=== PATIENT | male | born 1985 | race African-American/Black ===

== ENCOUNTER 2018-04-23 15:42 | Observation (INO) | payer SELFPAY ==
--- NOTE | 2018-04-23 16:01 | PDOC ---
History of Present Illness - General Chief Complaint: Syncope/Near Syncope Stated Complaint: Syncope/Near Syncope History Source: Patient, Family (mother) - History of Present Illness Initial Comments: The patient is a 32 with no reported history other than one syncopal fall who presents s/p syncope x2 today. He reports that he was standing in his home talking with his mother when he suddenly syncopized. He immediately regained conciousness, attempted to stand with the assistance of his mother, and syncopized again. He endorses LOC and hitting the front of head although his second fall was partially broken by his mother. He denies urinary or fecal incontinence during/after the episode. The patient's mother denies witnessing any seizure-like activity. The patient denies any symptoms prior to his syncopal episode. He denies recent sports activity, working outside, AVENDAÑO, blurry vision, chest pain, N/V/D. He denies history of dysrhythmia, family history of syncope or heart disease. PCP - Dr. Cormier 04/23/18 17:16 Past History - Past Medical History Allergies/Adverse Reactions: Allergies Allergy/AdvReac Type Severity Reaction Status Date / Time No Known Allergies Allergy Verified 04/23/18 15:48 Home Medications: Ambulatory Orders Acetaminophen [Tylenol] 650 mg PO PRN PRN 04/24/18 Albuterol Sulfate Inhaler - [Ventolin HFA Inhaler -] 1 puff PO PRN PRN 04/24/18 Anemia: No COPD: No Diabetes: No HTN: No - Surgical History Abdominal Surgery: No - Suicide/Smoking/Psychosocial Hx Smoking History: Current every day smoker Number of Cigarettes Smoked Daily: 4 Information on smoking cessation initiated: No Review of Systems - Review of Systems Able to Perform ROS?: Yes Comments:: GENERAL/CONSTITUTIONAL: No fever or chills. No weakness. HEAD, EYES, EARS, NOSE AND THROAT: +forehead pain s/p fall. No change in vision. No ear pain or discharge. No sore throat. CARDIOVASCULAR: No chest pain or shortness of breath RESPIRATORY: No cough, wheezing, or hemoptysis. GASTROINTESTINAL: No nausea, vomiting, diarrhea or constipation. GENITOURINARY: No dysuria, frequency, or change in urination. MUSCULOSKELETAL: No joint or muscle swelling or pain. No neck or back pain. SKIN: No rash NEUROLOGIC: +LOC. No headache or change in strength/sensation. ENDOCRINE: No increased thirst. No abnormal weight change HEMATOLOGIC/LYMPHATIC: No anemia, easy bleeding, or history of blood clots. ALLERGIC/IMMUNOLOGIC: No hives or skin allergy. 04/23/18 17:24 Is the patient limited Urdu proficient: No *Physical Exam - Vital Signs Last Vital Signs Temp Pulse Resp BP Pulse Ox 98.0 F 77 16 85/44 96 04/23/18 15:47 04/23/18 15:47 04/23/18 15:47 04/23/18 15:47 04/23/18 15:47 - Physical Exam Comments: GENERAL: Awake, tired, and fully oriented, in no acute distress HEAD: Small abrasion over left eyebrow, normocephalic, atraumatic EYES: PERRLA, EOMI, sclera anicteric, conjunctiva clear ENT: Auricles normal inspection, hearing grossly normal, nares patent, oropharynx clear without exudates. Moist mucosa NECK: Normal ROM, supple, no lymphadenopathy LUNGS: No distress, speaks full sentences, clear to auscultation bilaterally HEART: Hypotension to SBP 80s. Regular rate and rhythm, normal S1 and S2, no murmurs appreciated ABDOMEN: Soft, nontender, normoactive bowel sounds. No guarding, no rebound EXTREMITIES : Mild left calf pain. Normal range of motion, no edema. No clubbing or cyanosis. NEUROLOGICAL: Cranial nerves II through XII grossly intact. Slow but appropriate speech, no focal sensorimotor deficits SKIN: Warm, Dry, normal turgor, no rashes or lesions noted 04/23/18 16:37 ED Treatment Course - LABORATORY CBC & Chemistry Diagram: 04/24/18 05:30 04/24/18 05:30 Medical Decision Making - Medical Decision Making The patient is a 32M with a history of 1 syncopal episode who presents s/p syncope x2 today while standing at home. Ddx: arrythmia, orthostatic, metabolic disturbance, PE, hypoglycemia, anemia; less likely vasovagal or stroke, not likely medication related ED Course CMP, CBC, UDS, UA, D-dimer, CXR, ECG, CT Head 2L NS bolus 04/23/18 16:41 Patient's BP responsive to IVF, SBP from 80s to 100s CXR without evidence of PNA, PNX, or cardiomegaly CMP significant for hypokalmemia (3.4) and BRANT with Cr of 1.4 -Potassium repleted with KCl 40mg PO once 04/23/18 17:26 Orthostatic pressure Layin/80s Sittin/80s Standin/[address] Head without evidence of acute bleed Patient reports some symptomatic improvement after 2L NS 04/23/18 18:18 Plan for admission for observation for echocardiogram for evaluation of syncope 04/23/18 18:23 *DC/Admit/Observation/Transfer Diagnosis at time of Disposition: Syncope Qualifiers: Syncope type: unspecified Qualified Code(s): R55 - Syncope and collapse - Discharge Dispostion Condition at time of disposition: Good Decision to Admit order: Yes - Referrals - Patient Instructions - Post Discharge Activity
[2018-04-23] MEDS ORDERED: SODIUM CHLORIDE 0.9% 500 ML INFUS.BAG IV ONE (16:11)
[2018-04-23 16:21] LABS: HEMOGLOBIN 13.8 GM/dL (11.7-16.9); MCH 30.6 pg (25.7-33.7); MCHC 33.8 g/dl (32.0-35.9); MEAN CELL VOLUME 90.6 fl (80-96); MEAN PLT VOLUME 11.3 fl (7.5-11.1); PLATELET COUNT 177 K/MM3 (134-434); RBC 4.52 M/mm3 (4.00-5.60); RDW 13.5 % (11.9-15.9); WHITE BLOOD COUNT 6.7 K/mm3 (4.0-10.0)
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
[2018-04-23] MEDS ORDERED: SODIUM CHLORIDE 0.9% 1000 ML INFUS.BAG IV ONE (16:24)
[2018-04-23 16:47] LABS: ALBUMIN 3.4 g/dl (3.4-5.0); ANION GAP 10 (8-16); BLOOD UREA NITROGEN 9 mg/dL (7-18); CALCIUM 8.2 mg/dL (8.5-10.1); CHLORIDE 105 mmol/L (98-107); CO2 27 mmol/L (21-32); CREATININE 1.4 mg/dL (0.7-1.3); GLUCOSE,RANDOM 149 mg/dL (74-106); POTASSIUM 3.4 mmol/L (3.5-5.1); SGOT/AST 16 U/L (15-37); SGPT/ALT 37 U/L (12-78); SODIUM 142 mmol/L (136-145)
[2018-04-23 16:51] LABS: ALK PHOS 95 U/L (45-117); BILIRUBIN,TOTAL 0.4 mg/dL (0.2-1.0); TOT PROT 6.7 g/dl (6.4-8.2)
[2018-04-23] MEDS ORDERED: POTASSIUM CHLORIDE TABS 20 MEQ TABLET.ER (FP) PO ONE ×2 (17:10→17:20)
--- NOTE | 2018-04-23 19:08 | PDOC ---
*Physical Exam - Vital Signs Last Vital Signs Temp Pulse Resp BP Pulse Ox 98.0 F 74 20 114/83 97 04/23/18 15:47 04/23/18 18:25 04/23/18 18:25 04/23/18 18:25 04/23/18 18:30 ED Treatment Course - LABORATORY CBC & Chemistry Diagram: 04/23/18 16:12 04/23/18 16:12 - ADDITIONAL ORDERS Additional order review: Laboratory Results 04/23/18 04/23/18 16:26 16:12 Sodium 142 Potassium 3.4 L Chloride 105 Carbon Dioxide 27 Anion Gap 10 BUN 9 Creatinine 1.4 H Creat Clearance w eGFR 58.73 Random Glucose 149 H Calcium 8.2 L Total Bilirubin 0.4 AST 16 ALT 37 Alkaline Phosphatase 95 Creatine Kinase 182 Creatine Kinase Index 0.3 CK-MB (CK-2) 0.67 Troponin I < 0.02 Total Protein 6.7 Albumin 3.4 TSH 0.45 04/23/18 16:12 RBC 4.52 MCV 90.6 MCHC 33.8 RDW 13.5 MPV 11.3 H - Medications Given in the ED: ED Medications Discontinued Medications Generic Name Dose Route Start Last Admin Trade Name Freq PRN Reason Stop Dose Admin Potassium Chloride 40 meq 04/23/18 17:10 04/23/18 17:45 K-Dur - PO 04/23/18 17:11 40 meq ONCE ONE Administration Sodium Chloride 1,000 ml 04/23/18 16:11 04/23/18 16:12 Normal Saline - IV 04/23/18 16:12 1,000 ml ONCE ONE Administration Sodium Chloride 1,000 ml 04/23/18 16:24 04/23/18 16:25 Normal Saline - IV 04/23/18 16:25 1,000 ml ONCE ONE Administration Medical Decision Making - Medical Decision Making Patient signed out from Dr. Nayak. 32yo M with two episodes of syncope today. CXR unremarkable. Orthostatics negative. TSH wnl. CT head with no acute blood. Hypokalemia= 3.4 repleted with 40meq. Waiting to speak with hospitalist. 04/23/18 19:[address] Antunez who will accept this patient for observation. 04/23/18 19:20 *DC/Admit/Observation/Transfer Diagnosis at time of Disposition: Syncope Qualifiers: Syncope type: unspecified Qualified Code(s): R55 - Syncope and collapse - Discharge Dispostion Condition at time of disposition: Guarded Decision to Admit order: Yes - Referrals - Patient Instructions - Post Discharge Activity
[2018-04-23 19:56] LABS: URINE APPEARANCE CLEAR; URINE BILIRUBIN NEGATIVE (<2.0 mg/dL); URINE COLOR YELLOW; URINE GLUCOSE (UA) NEGATIVE (NEGATIVE); URINE KETONE NEGATIVE (NEGATIVE); URINE LEUK ESTERASE NEGATIVE (NEGATIVE); URINE NITRITE NEGATIVE (NEGATIVE); URINE PROTEIN NEGATIVE (NEGATIVE)
[2018-04-23 20:28] LABS: COCAINE, UR NEGATIVE ng/ml (CUTOFF=300); METHADONE, UR NEGATIVE ng/ml (CUTOFF=300); OPIATES, URI NEGATIVE ng/ml (CUTOFF=300); PHENCYCLIDINE,URINE NEGATIVE ng/ml (CUTOFF=25); URINE AMPHETAMINES NEGATIVE ng/ml (CUTOFF=500); URINE BARBITURATES NEGATIVE ng/ml (CUTOFF=200); URINE BENZODIAZEPINES NEGATIVE ng/ml (CUTOFF=200)
--- NOTE | 2018-04-23 21:05 | PN ---
Teaching Attending Note ATTENDING PHYSICIAN STATEMENT I saw and evaluated the patient. I reviewed the resident's note and discussed the case with the resident. I agree with the resident's findings and plan as documented. SUBJECTIVE: OBJECTIVE: CBCD WBC 6.7 K/mm3 (4.0-10.0) 04/23/18 16:12 RBC 4.52 M/mm3 (4.00-5.60) 04/23/18 16:12 Hgb 13.8 GM/dL (11.7-16.9) 04/23/18 16:12 Hct 41.0 % (35.4-49) 04/23/18 16:12 MCV 90.6 fl (80-96) 04/23/18 16:12 MCHC 33.8 g/dl (32.0-35.9) 04/23/18 16:12 RDW 13.5 % (11.9-15.9) 04/23/18 16:12 Plt Count 177 K/MM3 (134-434) 04/23/18 16:12 MPV 11.3 fl (7.5-11.1) H 04/23/18 16:12 CMP Sodium 142 mmol/L (136-145) 04/23/18 16:12 Potassium 3.4 mmol/L (3.5-5.1) L 04/23/18 16:12 Chloride 105 mmol/L (98-107) 04/23/18 16:12 Carbon Dioxide 27 mmol/L (21-32) 04/23/18 16:12 Anion Gap 10 (8-16) 04/23/18 16:12 BUN 9 mg/dL (7-18) 04/23/18 16:12 Creatinine 1.4 mg/dL (0.7-1.3) H 04/23/18 16:12 Creat Clearance w eGFR 58.73 (>60) 04/23/18 16:12 Calcium 8.2 mg/dL (8.5-10.1) L 04/23/18 16:12 Total Bilirubin 0.4 mg/dL (0.2-1.0) 04/23/18 16:12 AST 16 U/L (15-37) 04/23/18 16:12 ALT 37 U/L (12-78) 04/23/18 16:12 Alkaline Phosphatase 95 U/L (45-117) 04/23/18 16:12 Total Protein 6.7 g/dl (6.4-8.2) 04/23/18 16:12 Albumin 3.4 g/dl (3.4-5.0) 04/23/18 16:12 ASSESSMENT AND PLAN: Syncope
[2018-04-23] MEDS ORDERED: SODIUM CHLORIDE 1,000 ML IV SCH (23:45)
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
[2018-04-24] MEDS ORDERED: PNEUMOC 13-VAL CONJ-DIP CRM/PF 0.5 ML DISP.SYRIN IM ONE (04:08)
[2018-04-24 04:45] VITALS: BMI 35.7
[2018-04-24] MEDS: HEPARIN NA (PORCINE) 5,000 UNITS/ML 1ML VIAL SQ SCH ×2 (06:03→13:36)
[2018-04-24 06:30] LABS: HEMATOCRIT 38.6 % (35.4-49); HEMOGLOBIN 13.2 GM/dL (11.7-16.9); MCH 30.9 pg (25.7-33.7); MEAN CELL VOLUME 90.7 fl (80-96); MEAN PLT VOLUME 10.7 fl (7.5-11.1); PLATELET COUNT 159 K/MM3 (134-434); RBC 4.26 M/mm3 (4.00-5.60); RDW 13.8 % (11.9-15.9); WHITE BLOOD COUNT 8.8 K/mm3 (4.0-10.0)
[2018-04-24 06:52] LABS: ALBUMIN 3.2 g/dl (3.4-5.0); ANION GAP 5 (8-16); BLOOD UREA NITROGEN 10 mg/dL (7-18); CALCIUM 8.3 mg/dL (8.5-10.1); CHLORIDE 107 mmol/L (98-107); CO2 29 mmol/L (21-32); CREATININE 0.9 mg/dL (0.7-1.3); GLUCOSE,RANDOM 88 mg/dL (74-106); PHOSPHOROUS 3.4 mg/dL (2.5-4.9); POTASSIUM 4.1 mmol/L (3.5-5.1); SGOT/AST 19 U/L (15-37); SGPT/ALT 36 U/L (12-78); SODIUM 141 mmol/L (136-145)
[2018-04-24 06:55] LABS: ALK PHOS 92 U/L (45-117); BILIRUBIN,TOTAL 0.4 mg/dL (0.2-1.0); TOT PROT 6.4 g/dl (6.4-8.2)
--- NOTE | 2018-04-24 11:25 | EKG ---
Test Reason : Blood Pressure : / mmHG Vent. Rate : 071 BPM Atrial Rate : 071 BPM P-R Int : 170 ms QRS Dur : 096 ms QT Int : 380 ms P-R-T Axes : 032 054 031 degrees QTc Int : 412 ms NORMAL SINUS RHYTHM NONSPECIFIC ST AND T WAVE ABNORMALITY ABNORMAL ECG NO PREVIOUS ECGS AVAILABLE Confirmed by HARDEEP BRISENO MD ([id number]) on 04/24/2018 11:25:27 AM Referred By: Confirmed By:HARDEEP BRISENO MD
--- NOTE | 2018-04-24 12:07 | ECHO ---
Name: EKATERINA GILLETTE Exam:Adult Echocardiogram Study Date: 04/24/2018 07:54 AM Age: 32 yrs Reason For Study: SYNCOPE Height: 74 in Weight: 277 lb BSA: 2.5 m2 MMode/2D Measurements & Calculations IVSd: 0.80 cm Ao root diam: 3.7 cm LVIDd: 5.1 cm LA dimension: 3.7 cm LVIDs: 3.3 cm ACS: 2.5 cm LVPWd: 1.0 cm IVSs: 1.4 cm LVPWs: 1.1 cm EDV(Teich): 122.1 ml ESV(Teich): 45.1 ml Doppler Measurements & Calculations MV E max kartik: 87.6 cm/sec Ao V2 max: 117.3 cm/sec MV A max kartik: 62.4 cm/sec Ao max P.5 mmHg MV E/A: 1.4 Ao V2 mean: 87.5 cm/sec Ao mean P.4 mmHg Ao V2 VTI: 27.1 cm MR max kartik: 514.6 cm/sec Med Peak E' Kartik: 8.7 cm/sec MR max P.2 mmHg Med E/e': 10.1 Lat Peak E' Kartik: 13.5 cm/sec Lat E/e': 6.5 Procedure A two-dimensional transthoracic echocardiogram with color flow and Doppler was performed. Left Ventricle The left ventricular size, thickness and function are normal. The left ventricular ejection fraction is normal. Left Ventricular Filling pattern is normal for age. The left ventricular wall motion is stuart l. Right Ventricle The right ventricle is not well visualized. Atria Normal left and right atrial size and function. Mitral Valve There is mild mitral valve thickening. Highly mobile mass consistent with a torn or redundant chordae seen. There is no mitral valve stenosis. There is mild to moderate mitral regurgitation. Tricuspid Valve There is mild tricuspid valve thickening. There is no tricuspid stenosis. There was insufficient TR d etected to calculate RV systolic pressure. Aortic Valve The aortic valve is normal in structure and function. No hemodynamically significant valvular aortic stenosis. No aortic regurgitation is present. Pulmonic Valve The pulmonic valve is not well visualized. There is no pulmonic valvular stenosis. Trace pulmonic flori vular regurgitation. Great Vessels The aortic root is normal size. Pericardium/Pleura There is no pericardial effusion. Interpretation Summary The left ventricular size, thickness and function are normal The left ventricular ejection fraction is normal. The left ventricular wall motion is normal. Trace pulmonic valvular regurgitation. Highly mobile mass consistent with a torn or redundant chordae seen. There is mild to moderate mitral regurgitation. There is mild mitral valve thickening. Left Ventricular Filling pattern is normal for age. The right ventricle is not well visualized. There was insufficient TR detected to calculate RV systolic pressure. MD Froilan Dunlap 04/24/2018 12:06 PM
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
[2018-04-24 15:20] VITALS: BP 152/83; PULSE 72; TEMP 98.1
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
[2018-04-24] MEDS ORDERED: PT OWN MED DRAWER 7, Y5N ONE (17:49)
== END 2018-04-24 17:20 | disposition home or self-care (01) ==
LOC: JER 15:42 → JERBED 19:51 → J4W 04-24 02:34
PROVIDERS: ADMIT Internal Medicine; ATTEND Internal Medicine
CPT/HCPCS: 36415; 70450-TC; 71045-TC-FY; 80053; 80307; 81003; 82550; 82553; 83036; 83735; 84100; 84439; 84443; 84480; 84484; 85027; 85379; 93005; 93010; 93306-TC; 99285-25; G0378; J1644; J7030

== ENCOUNTER 2022-04-06 12:37 | Emergency (ER) | payer SELFPAY ==
[2022-04-06 13:09] VITALS: BP 136/90; PULSE 83; TEMP 97.1; BMI 41.3
[2022-04-06] MEDS ORDERED: LIDOCAINE 5% TOPICAL PATCH TP ONE (13:42)
[2022-04-06] MEDS ORDERED: diazePAM 5 MG TABLET PO ONE (13:42)
[2022-04-06] MEDS ORDERED: KETOROLAC TROMETHAMINE 60 MG/2 ML VIAL IM ONE (13:42)
[2022-04-06] MEDS ORDERED: ACETAMINOPHEN 500 MG TABLET (FP) PO ONE (13:42)
[2022-04-06] MEDS ORDERED: diazePAM 5 MG TABLET ONE (13:47)
[2022-04-06] MEDS ORDERED: LIDOCAINE 5% TOPICAL PATCH ONE (13:47)
[2022-04-06] MEDS ORDERED: KETOROLAC TROMETHAMINE 60 MG/2 ML VIAL ONE (13:47)
[2022-04-06] MEDS ORDERED: LIDOCAINE PATCH REMOVAL MC ONE (22:00)
== END 2022-04-06 16:31 | disposition home or self-care (01) ==
LOC: JER 12:37
PROC: 3E0233Z Introduction of Anti-inflammatory into Muscle, Percutaneous Approach (ICD-10-PCS; principal; 2022-04-06)
DX: M54.9 Dorsalgia, unspecified (principal)
CPT/HCPCS: 70450-TC; 72125-TC; 72131-TC; 99285-25